=== PATIENT | female | born 2000 | race Caucasian/White ===

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

== ENCOUNTER 2021-12-21 00:40 | Inpatient (IN) ==
[2021-12-21] MEDS ORDERED: *HR* Promethazine 25 MG/ML VIAL IM PRN ×3 (03:56→10:31)
[2021-12-21] MEDS ORDERED: Ondansetron 4 MG/2 ML VIAL IVP PRN (03:56)
[2021-12-21] MEDS ORDERED: Naloxone 0.4 MG/ML INJ IVP PRN ×2 (03:56→10:31)
[2021-12-21] MEDS ORDERED: 0.9 % Sodium Chloride 1,000 ML IVC SCH ×2 (04:00→10:31)
[2021-12-21] MEDS ORDERED: Iopamidol - 300 50 ML VIAL ONE (07:15)
[2021-12-21 07:32] LABS: Hematocrit 39.1 % (35.3-44.9); Hemoglobin 13.1 g/dL (11.5-15.4); Mean Corpuscular HGB Conc 33.5 g/dL (31.6-35.5); Mean Corpuscular Hemoglobin 29.4 pg (28.0-33.3); Mean Corpuscular Volume 87.7 fL (83.0-100.0); Mean Platelet Volume 11.9 fL (9.4-12.4); Platelet Count 231 K/mcL (140-400); Red Blood Count 4.46 M/mcL (3.82-4.97); Red Cell Distribution Width 12.5 % (11.5-14.5); White Blood Count 21.5 K/mcL (4.3-11.1)
[2021-12-21 07:40] LABS: INR 1.2; Prothrombin Time 13.7 Seconds (9.4-12.1)
[2021-12-21 07:42] LABS: Activated Partial Thrombo Time 35.8 Seconds (26.0-36.0)
[2021-12-21 07:50] LABS: BUN/Creatinine Ratio 11 (6-26); Blood Urea Nitrogen 8 mg/dL (6-20); Carbon Dioxide 20 mEq/L (23-29); Chloride 106 mEq/L (98-107); Glucose 114 mg/dL (70-105); Osmolality,Calculated 277 (280-300); Potassium 3.5 mEq/L (3.5-5.1); Sodium 134 mEq/L (136-145); eGFR For African Americans > 60 (> 60); eGFR For Non-African Americans > 60 (> 60)
[2021-12-21] MEDS ORDERED: *HR* FentaNYL (PF) 100 MCG/2 ML VIAL ONE (08:15)
[2021-12-21] MEDS ORDERED: *HR* Propofol 200 MG/20 ML VIAL IVP ONE (08:15)
[2021-12-21] MEDS ORDERED: *HR* Succinylcholine 200 MG/10 ML VIAL IVP ONE (08:17)
[2021-12-21] MEDS ORDERED: Ondansetron 4 MG/2 ML VIAL ONE (08:17)
[2021-12-21] MEDS ORDERED: Lidocaine -MPF 2% 5 ML VIAL ONE (08:17)
[2021-12-21] MEDS ORDERED: Lidocaine HCL 4 ML Topical Solution (Laryng-O-Jet Kit Sterile Pak) TP ONE (08:17)
[2021-12-21] MEDS ORDERED: cefTRIAXone 1,000 MG in 0.9 % Sodium Chloride 10 ML IVP SCH (09:00)
[2021-12-21] MEDS ORDERED: *HR* FentaNYL (PF) 100 MCG/2 ML VIAL IVP PRN (09:08)
[2021-12-22 03:09] LABS: Hematocrit 36.9 % (35.3-44.9); Hemoglobin 12.2 g/dL (11.5-15.4); Mean Corpuscular HGB Conc 33.1 g/dL (31.6-35.5); Mean Corpuscular Volume 87.9 fL (83.0-100.0); Mean Platelet Volume 12.3 fL (9.4-12.4); Platelet Count 227 K/mcL (140-400); Red Cell Distribution Width 12.7 % (11.5-14.5); White Blood Count 20.7 K/mcL (4.3-11.1)
[2021-12-22 03:21] LABS: BUN/Creatinine Ratio 15 (6-26); Blood Urea Nitrogen 8 mg/dL (6-20); Carbon Dioxide 23 mEq/L (23-29); Chloride 105 mEq/L (98-107); Glucose 99 mg/dL (70-105); Osmolality,Calculated 282 (280-300); Potassium 3.1 mEq/L (3.5-5.1); Sodium 137 mEq/L (136-145); eGFR For African Americans > 60 (> 60); eGFR For Non-African Americans > 60 (> 60)
[2021-12-22] MEDS ORDERED: cefTRIAXone 1,000 MG in 0.9 % Sodium Chloride 10 ML IVP SCH (09:00)
[2021-12-22] MEDS ORDERED: cefTRIAXone 1,000 MG in 0.9 % Sodium Chloride Mini Bag 100 ML IVPB ONE (14:13)
[2021-12-22] MEDS ORDERED: D5% in Water 50 ML IVPB SCH (15:30)
[2021-12-22] MEDS: Acetaminophen 325 MG TABLET PO SCH (16:35)
[2021-12-22] MEDS: WATER IVPB SCH (18:00)
[2021-12-22] MEDS: D5 IVPB SCH (18:00)
[2021-12-22] MEDS: AMPHOTERICIN B LIPID COMPLEX IVPB SCH (18:00)
[2021-12-22] MEDS: D5% in Water 50 ML IVPB SCH (20:43)
[2021-12-23 03:32] LABS: Basophils % 0.2 %; Eosinophils # 0.1 K/mcL (0.0-0.6); Eosinophils % 0.5 %; Hematocrit 35.8 % (35.3-44.9); Hemoglobin 11.7 g/dL (11.5-15.4); Immature Granulocytes % 0.4 % (0-4); Lymphocytes # 1.7 K/mcL (0.6-4.6); Lymphocytes % 17.8 %; Mean Corpuscular HGB Conc 32.7 g/dL (31.6-35.5); Mean Corpuscular Volume 88.8 fL (83.0-100.0); Mean Platelet Volume 11.8 fL (9.4-12.4); Monocytes # 0.6 K/mcL (0.0-1.3); Monocytes % 6.5 %; Platelet Count 191 K/mcL (140-400); Red Blood Count 4.03 M/mcL (3.82-4.97); Red Cell Distribution Width 12.9 % (11.5-14.5); Segmented Neutrophils % 74.6 %
[2021-12-23 03:38] LABS: Neutrophils # 7.2 K/mcL (1.6-8.9); White Blood Count 9.6 K/mcL (4.3-11.1)
[2021-12-23 03:56] LABS: Albumin 3.6 g/dL (3.5-5.7); Albumin/Globulin Ratio 1.4 (1.1-2.2); Bilirubin,Direct 0.1 mg/dL (0.0-0.2); Bilirubin,Indirect 0.3 mg/dL (0.0-1.0); Bilirubin,Total 0.4 mg/dL (0.3-1.0); Globulin 2.5 g/dL (2.4-3.5); Total Protein 6.1 g/dL (6.4-8.9)
[2021-12-23 03:57] LABS: BUN/Creatinine Ratio 22 (6-26); Blood Urea Nitrogen 11 mg/dL (6-20); Calcium 8.7 mg/dL (8.6-10.3); Carbon Dioxide 22 mEq/L (23-29); Chloride 107 mEq/L (98-107); Glucose 95 mg/dL (70-105); Osmolality,Calculated 281 (280-300); Potassium 3.8 mEq/L (3.5-5.1); Sodium 136 mEq/L (136-145); eGFR For African Americans > 60 (> 60); eGFR For Non-African Americans > 60 (> 60)
[2021-12-23] MEDS: cefTRIAXone 2,000 MG in 0.9 % Sodium Chloride Mini Bag 100 ML IVPB SCH (08:12)
[2021-12-23] MEDS ORDERED: Lidocaine -MPF 1% 5 ML AMPUL INFILT ONE (13:22)
[2021-12-23] MEDS: Acetaminophen 325 MG TABLET PO SCH (14:46)
[2021-12-23] MEDS ORDERED: D5% in Water 50 ML IVPB SCH ×2 (15:00→16:15)
[2021-12-23] MEDS: D5 IVPB SCH (16:11)
[2021-12-23] MEDS: AMPHOTERICIN B LIPID COMPLEX IVPB SCH (16:11)
[2021-12-23] MEDS: WATER IVPB SCH (16:11)
[2021-12-24] MEDS: D5% in Water 50 ML IVPB SCH (00:13)
[2021-12-24 05:13] LABS: Hematocrit 35.8 % (35.3-44.9); Hemoglobin 11.7 g/dL (11.5-15.4); Mean Corpuscular HGB Conc 32.7 g/dL (31.6-35.5); Mean Corpuscular Volume 88.8 fL (83.0-100.0); Mean Platelet Volume 11.9 fL (9.4-12.4); Platelet Count 187 K/mcL (140-400); Red Blood Count 4.03 M/mcL (3.82-4.97); Red Cell Distribution Width 12.6 % (11.5-14.5)
[2021-12-24 05:28] LABS: Alanine Aminotransferase 8 Units/L (7-52); Albumin 3.5 g/dL (3.5-5.7); Albumin/Globulin Ratio 1.3 (1.1-2.2); Alkaline Phosphatase 48 Units/L (34-104); Aspartate Amino Transferase 9 Units/L (13-39); BUN/Creatinine Ratio 23 (6-26); Bilirubin,Total 0.4 mg/dL (0.3-1.0); Blood Urea Nitrogen 11 mg/dL (6-20); Calcium 8.9 mg/dL (8.6-10.3); Carbon Dioxide 25 mEq/L (23-29); Chloride 103 mEq/L (98-107); Globulin 2.7 g/dL (2.4-3.5); Glucose 89 mg/dL (70-105); Magnesium 1.6 mg/dL (1.6-2.6); Osmolality,Calculated 285 (280-300); Phosphorous 4.7 mg/dL (2.7-4.5); Potassium 3.2 mEq/L (3.5-5.1); Sodium 138 mEq/L (136-145); Total Protein 6.2 g/dL (6.4-8.9); eGFR For African Americans > 60 (> 60); eGFR For Non-African Americans > 60 (> 60)
[2021-12-24] MEDS: cefTRIAXone 2,000 MG in 0.9 % Sodium Chloride Mini Bag 100 ML IVPB SCH (08:33)
[2021-12-24 11:30] VITALS: O2SAT 98
[2021-12-24] MEDS ORDERED: D5% in Water 50 ML IVPB SCH (15:00)
[2021-12-24 15:57] VITALS: BP 92/60; PULSE 81; TEMP 98.5
[2021-12-24] MEDS: WATER IVPB SCH (15:59)
[2021-12-24] MEDS: AMPHOTERICIN B LIPID COMPLEX IVPB SCH (15:59)
[2021-12-24] MEDS: D5 IVPB SCH (15:59)
== END 2021-12-24 19:04 | disposition home health service (06) | DRG 566 ==
LOC: 3ANU → SUATTDRO 01:57
PROVIDERS: ADMIT Internal Medicine; ATTEND Internal Medicine